=== PATIENT | female | born 1960 | race Caucasian/White ===

== ENCOUNTER 2024-10-20 19:06 | Emergency (ER) | payer MEDICARE, SELFPAY ==
[2024-10-20 19:11] VITALS: BP 176/104
[2024-10-20 19:29] VITALS: BP 181/90
[2024-10-20 20:00] VITALS: BP 165/97
[2024-10-20] MEDS: NSS 1000 IV (20:18)
[2024-10-20] MEDS: VALIUM 5 MG PO (20:19)
[2024-10-20 20:32] LABS: % Basophils 0.4 % (0-2); % Eosinophils 1.7 % (0-6); % Immature Granulocytes 0.3 % (0-0.5); % Lymphocytes 23.6 % (20.5-51.1); % Monocytes 8.5 % (1.7-9.3); % Neutrophils 65.5 % (42.2-75.2); Absolute Eosinophils 0.2 10^3/uL (0-0.7); Absolute Lymphocytes 2.2 10^3/uL (1.2-3.4); Absolute Monocytes 0.8 10^3/uL (0.1-0.6); Absolute Neutrophils 6.2 10^3/uL (1.4-6.5); Hematocrit 42.6 % (37.0-47.0); Hemoglobin 15.1 g/dL (12.0-16.0); Mean Corp Hgb Conc. 35.4 g/dL (33.0-37.0); Mean Corpuscular Hgb 32.4 pg (27.0-31.0); Mean Corpuscular Volume 91.4 fL (81.0-99.0); Mean Platelet Volume 9.3 fL (7.4-10.4); Nucleated Red Blood Cells % 0 %; Platelet Count 338 10^3/uL (130-400); Red Blood Cell Count 4.66 10^6/uL (4.20-5.40); White Blood Cell Count 9.4 10^3/uL (4.8-10.8)
[2024-10-20 20:48] LABS: Blood Urea Nitrogen 16 mg/dl (7-17); Calcium 10.2 mg/dl (8.4-10.2); Carbon Dioxide 23 mmol/L (22-30); Chloride 99 mmol/L (98-107); Glucose 104 mg/dl (70-99); Potassium 4.3 mmol/L (3.5-5.1); Sodium 136 mmol/L (135-145); eGFR > 60.00
[2024-10-20 20:59] LABS: Troponin I < 0.012 ng/ml
[2024-10-20 21:00] VITALS: BP 155/97
[2024-10-20] MEDS: NORVASC 5 MG PO (21:06)
[2024-10-20 21:47] VITALS: BP 157/97
--- NOTE | 2024-10-20 22:02 | ED.GENMED ---
History of Present Illness
General
Chief Complaint: Blood Pressure Problem
Source: patient and family
Exam Limitations: none
Time Seen by Provider: 10/20/24 19:27
Nursing documentation reviewed up to this point in time: agreed with
History of Present Illness
History of Present Illness:
Patient is a 64-year-old female with past medical history of bipolar disorder, schizoaffective disorder, depression, GERD, hypertension, who presents to the emergency department via EMS from home accompanied by her daughter for evaluation of
dizziness and elevated blood sugar. Patient reports that she has been dealing with dizziness for the past month or so. She reports that this has become gradually worse. Patient reports that is difficult to describe. Patient states that it got so
bad that she went to [facility] last week. While there, the patient had an extensive workup and was actually admitted for 4 days. Discharge instructions indicate that she had a CTA of the head and neck which demonstrated no abnormalities.
The patient also had an MRI of the brain which also showed no abnormalities. The patient was prescribed meclizine which she reports she has been taking without improvement in her symptoms. The patient was advised to follow-up with vestibular
therapy. Patient reports that she was not given any medication for her blood pressure. Patient reports that she was feeling extremely dizzy today so she checked her blood pressure at home. She reports that it was 220s over 120s and medics thought
it was best that she come to the emergency department to be evaluated. Patient reports that she continues to have dizziness. She reports that sometimes she has headaches. Patient denies vision changes such as blurred vision or double vision.
Patient denies chest pain, palpitations, shortness of breath, abdominal pain, nausea, vomiting, recent change in her bowel habits. Patient denies any recent lower extremity edema. Patient denies any recent illnesses such as fevers, chills, nasal
congestion, rhinorrhea, sore throat, cough. Patient notes that she did stop taking her psychiatric medications at the beginning of the year. Daughter questions whether this could be a component of the patient's symptoms today.
Past History
Past History
ED Past Medical History: GERD, HTN, Psychiatric (bipolar disorder, schizoaffective disorder, depression) and Other (hepatic steatosis)
ED Past Surgical History: Gynecological (Hyseterectomy)
Social History
Tobacco: Non-smoker
Alcohol: None
Drug: None
Review of Systems
Review of Systems
Allergies reviewed?: Yes
All Other Systems: ROS reviewed and negative except as documented in HPI and ROS
Constitutional: Reports no symptoms
EENT: Reports no symptoms
Respiratory: Reports no symptoms
Cardiac: Reports no symptoms
ABD/GI: Reports no symptoms
: Reports no symptoms
Musculoskeletal: Reports no symptoms
Skin: Reports no symptoms
Neurological: Reports dizzy
Endocrine: Reports no symptoms
Hematologic/Lymphatic: Reports no symptoms
Psychiatric: Reports depression and anxiety; Denies suicidal
Phy Exam
General Physical Exam
General Presentation: well appearing and no apparent distress
General Skin: warm and dry
General Habitus: normal
General Mental: alert
General Hydration: appears well hydrated
ENT Exam
ENT Exam: EOMI, pharynx normal, neck supple and normocephalic
Eye Exam
Eye Exam: PERRL, cornea clear and conjunctiva normal
Cardiovascular Exam
Cardiovascular Exam: regular rate/rhythm, no edema, no murmur and normal peripheral pulses
Pulmonary Exam
Pulmonary Exam: lungs clear, no respiratory distress, no rales, no crackles, no rhonchi, no stridor, no wheezing and no cough
Gastrointestinal Exam
Gastrointestinal Exam: normal bowel sounds, non tender, soft, no organomegaly, no pulsatile mass and non distended
Neurological Exam
Neurological Exam: alert, oriented x3, no motor deficits and speech normal
Musculoskeletal Exam
Musculoskeletal Exam: full ROM and no edema
Skin Exam
Skin Exam: normal color, warm/dry, no rash and no petechia
Psychiatric Exam
Psychiatric Exam: normal mood/affect
Course
Orders/Labs/Results
Orders:
Orders
10/20/24 19:52
Electrocardiogram (*1) Urgent
Reason for Study: Hypertension, Benign
EKG- Treatment ONCE
0.9% Sodium Chloride 1000 ml [Nss] 1,000 ml IV BOLUS
Diazepam [Valium] 5 mg PO NOW STA
10/20/24 20:09
Amlodipine [Norvasc] 10 mg .ROUTE .STK-MED ONE
10/20/24 20:20
Basic Metabolic Panel Urgent
Complete Blood Count/With Diff Urgent
Troponin I Urgent
10/20/24 21:05
Amlodipine [Norvasc] 5 mg PO DAILY
10/21/24 08:00
Amlodipine [Norvasc] 10 mg PO DAILY
Abnormal Lab Results
10/20/24
20:20
MCH 32.4 H pg
(27.0-31.0)
Absolute Monos (auto) 0.8 H 10^3/uL
(0.1-0.6)
Glucose 104 H mg/dl
(70-99)
10/20/24 20:20
10/20/24 20:20
Vital Signs
Initial and Last Documented VS:
Initial Vital Signs
Temp Pulse Resp BP Pulse Ox
98.6 F 92 20 176/104 96
10/20/24 19:11 10/20/24 19:11 10/20/24 19:11 10/20/24 19:11 10/20/24 19:11
Last Documented Vital Signs
Temp Pulse Resp BP Pulse Ox
98.6 F 88 25 157/97 94
10/20/24 19:11 10/20/24 21:33 10/20/24 21:33 10/20/24 21:47 10/20/24 21:33
*Critical Care Note
Total Time (30-74mins, 75-104mins- exclusive of procedures): Not Applicable
Update Note
Update Note:
64-year-old female presents for evaluation of dizziness and elevated blood pressure. Patient was just admitted to [facility] and had an extensive workup of her dizziness including CTA of the head and neck and also an MRI of the brain.
Patient was discharged on meclizine and referred to vestibular therapy. Patient was not discharged on antihypertensives. On exam, patient is intermittently tearful but is overall well-appearing and in no acute distress, she has normal
cardiopulmonary exam, she has a normal neurological exam without focal deficits. An EKG was performed and demonstrates normal sinus rhythm without evidence of acute ischemic changes. Labs were obtained and are non-actionable. Patient received IV
fluids, Valium, amlodipine. Patient's blood pressure improved. On reevaluation, patient states that she feels improved. She was able to ambulate to the restroom with a steady gait. I had an extensive conversation with the patient and her
daughter as they are questioning whether the patient's symptoms may be related to her recently stopping her psychiatric medications. Daughter reports that she has never stopped them for this period of time. Daughter and patient admits that the
patient has been perseverating more, has been more anxious more and has even been a bit paranoid at times. I encouraged the patient to follow-up with [facility] where her therapist is located and to discuss restarting her medications or possibly
starting different medications if she did not like the way that the medications made her feel. I will discharge the patient with a 30-day supply of amlodipine 5 mg to take daily. Patient encouraged to follow-up with her PCP for a blood pressure
recheck to ensure that her medications are optimized. I also advised them that the patient may still benefit from vestibular therapy and encouraged them to follow-up. Patient and her daughter were educated on strict return precautions, they
expressed understanding of the plan and agreed.
ED Attending Note
-
Portions of this chart may have been created with voice recognition software.� Occasional wrong word or��sound alike� substitutions may have occurred due to the inherent limitations of voice recognition software.
Discharge Plan
Departure
Patient Disposition: Home (Routine Discharge)
Date of Disposition: 10/20/24
Time of Disposition: 21:38
Patient with high blood pressure during this ER visit?: Yes
Condition: Good
Covid-19: Not Applicable
Discharge Problem:
Elevated blood pressure reading, Dizziness
Instructions: High Blood Pressure (DC), Dizziness
Prescriptions:
New
amlodipine 5 mg tablet
5 mg PO DAILY Qty: 30 0RF
Referrals:
Shaun Weinstein PA-C [Family Provider] - Follow up in 5-7 days (Call for follow up appointment)
Activity Restrictions/Additional Instructions:
You were seen in the emergency department for evaluation of elevated blood pressure and dizziness. While you were in the emergency department, you had an EKG and blood work. No dangerous abnormalities were found. Your blood pressure improved
while you were in the emergency department and we are starting you on blood pressure medication. Please make sure that you take it daily. We are also recommending that you follow-up closely with your therapist/mental health specialist at [facility]
[place] to restart your medications. Finally, please ensure that you schedule an appointment with your primary care provider for a blood pressure recheck within the next week. In addition, you may benefit from vestibular therapy as previously
recommended for your dizziness. Please return to the emergency department if you develop severe headache, worsening different dizziness, if you fall or hit your head, if you experience chest pain, shortness of breath, severe abdominal pain,
persistent vomiting, or for any other worsening or concerning symptoms.
Interventions
Interventions:
*Risk Screen - Suicide Last Done: 10/20/24 19:11
*General Assessment Last Done: 10/20/24 19:11
*Neglect/Abuse Screening Last Done: 10/20/24 19:11
ED- Fall Risk Assessment Last Done: 10/20/24 19:11
*ED COVID-19 Vaccine History Last Done: 10/20/24 19:11
ED- Cardiac Assessment Last Done: 10/20/24 20:15
ED- Neurological Assessment Last Done: 10/20/24 20:15
ED- Pulmonary Assessment Last Done: 10/20/24 20:15
ED Swallowing Screen Last Done: 10/20/24 20:15
Discharge Date and Time
Print Language: YORUBA
== END 2024-10-20 22:30 | disposition home or self-care (01) ==
LOC: EMR 19:06
PROVIDERS: Physician Assistant Medical; EMERGENCY PHYSICIAN Student in an Organized Health Care Education/Training Program; FAMILY PHYSICIAN Physician Assistant Medical
DX: R42 Dizziness and giddiness (principal); I10 Essential (primary) hypertension; K21.9 Gastro-esophageal reflux disease without esophagitis; F25.9 Schizoaffective disorder, unspecified; F31.9 Bipolar disorder, unspecified
CPT/HCPCS: 96360; 99284; 80048; 84484; 85025; 93005

== ENCOUNTER 2025-07-02 17:22 | Emergency (ER) | payer MEDICARE, MEDICAID, SELFPAY ==
[2025-07-02 17:24] VITALS: BP 142/96
[2025-07-02 17:51] LABS: Hematocrit 40.5 % (37.0-47.0); Hemoglobin 14.2 g/dL (12.0-16.0); Mean Corp Hgb Conc. 35.1 g/dL (33.0-37.0); Mean Corpuscular Volume 90.8 fL (81.0-99.0); Nucleated Red Blood Cells % 0 %; Platelet Count 321 10^3/uL (130-400); Red Cell Dist. Width 12.3 % (11.5-14.5)
[2025-07-02 18:18] LABS: ALT (SGPT) 43 U/L (0-35); AST (SGOT) 29 U/L (14-36); Albumin 4.6 g/dl (3.5-5.0); Alkaline Phosphatase 206 U/L (38-126); Blood Urea Nitrogen 10 mg/dl (7-17); Calcium 9.8 mg/dl (8.4-10.2); Carbon Dioxide 24 mmol/L (22-30); Glucose 114 mg/dl (70-99); Total Protein 7.7 g/dl (6.3-8.2); eGFR > 60.00
[2025-07-02 18:57] LABS: Chloride 106 mmol/L (98-107); Potassium 3.9 mmol/L (3.5-5.1); Sodium 140 mmol/L (135-145)
[2025-07-02 20:39] VITALS: BP 107/70
[2025-07-02 21:00] VITALS: BP 120/74
--- NOTE | 2025-07-02 21:42 | ED.GENMED ---
History of Present Illness
General
Chief Complaint: Numbness
Source: patient, spouse and family
Time Seen by Provider: 07/02/25 21:02
History of Present Illness
History of Present Illness:
65-year-old female with past medical history of seizures, hypertension, GERD, previous endometrial cancer presenting to the emergency department for evaluation of bilateral hand paresthesias and intermittent spasms to her upper arms but patient
overall stating that she just generally does not feel well. She notes that about 3 weeks ago she was discontinued off carbamazepine for which she had taken for almost 30 years due to side effects of hyponatremia and started on Keppra 500 mg twice
daily. Patient contacted her neurologist who wanted her to come to the ER for further evaluation this evening. She denies any headaches, focal weakness, diplopia, nausea or vomiting, fevers or any other concerns. Her usual seizure is described to
be tonic-clonic and often times will have a preceding aura. No other concerns presently
Past History
Past History
ED Past Medical History: GERD, HTN, Seizures, Psychiatric (bipolar disorder, schizoaffective disorder, depression) and Other (hepatic steatosis)
ED Past Surgical History: Gynecological (Hyseterectomy)
Social History
Tobacco: Non-smoker
Alcohol: None
Drug: None
Personal:
Living: with family
Review of Systems
Review of Systems
All Other Systems: ROS reviewed and negative except as documented in HPI and ROS
Phy Exam
Physical Exam
Physical Exam:
GENERAL: Alert , in no apparent distress
HEAD: Normocephalic atraumatic
EYE: conjunctiva clear, PERRL, EOMI, 3 mm bilateral
NECK: Supple, no significant adenopathy.
ENT: o/p clr, mmm.
CARDIAC: Regular rate and rhythm
LUNGS: Clear breath sounds bilaterally, no acute respiratory distress, no wheezes/rales/rhonchi
NEUROLOGICAL: Alert and oriented
SKIN: Warm and dry, skin intact.
MUSCULOSKELETAL: well perfused.
PSYCH: Normal and appropriate interaction.
Scores
Heart Failure Risk
Heart Failure Risk Score: Not Applicable
Heart Score for Chest Pain Patients
STEMI patient?: Not applicable
Withdrawal Assessment of Alcohol
Withdrawal Assessment Completed?: Not applicable
Course
Orders/Labs/Results
Orders:
Orders
07/02/25 17:34
Complete Blood Count/With Diff Urgent
Comprehensive Metabolic Panel Urgent
Creatine Phosphokinase Urgent
Comment: ADD ON
Magnesium Urgent
Comment: ADD ON
07/02/25 21:15
Add On- LAB Urgent
Tests Added?: cpk
07/02/25 21:16
Ceribell [Rapid Point of Care EEG (ED/ICU ONLY)] Q1
Indications for use:: Other
Comment: Numbness
07/02/25 21:31
CT Head W/o Iv Contrast Urgent
Comment:
Reason For Exam: paresthesias, hx seizures
Abnormal Lab Results
07/02/25
17:34
MCH 31.8 H pg
(27.0-31.0)
Absolute Monos (auto) 0.8 H 10^3/uL
(0.1-0.6)
Glucose 114 H mg/dl
(70-99)
ALT 43 H U/L
(0-35)
Alkaline Phosphatase 206 H U/L
(38-126)
07/02/25 17:34
07/02/25 17:34
Vital Signs
Initial and Last Documented VS:
Initial Vital Signs
Temp Pulse Resp BP Pulse Ox
98.0 F 104 18 142/96 95
07/02/25 17:24 07/02/25 17:24 07/02/25 17:24 07/02/25 17:24 07/02/25 17:24
Last Documented Vital Signs
Temp Pulse Resp BP Pulse Ox
98.0 F 85 23 121/65 94
07/02/25 17:24 07/02/25 22:00 07/02/25 22:00 07/02/25 22:00 07/02/25 21:47
MDM/Problems Addressed
Differential Diagnosis Includes:
Medication side effects
Medication Withdrawal
Focal Seizure
Electrolyte Imbalance
Less concern for CVA given bilateral nature of symptoms
MDM/Problems Addressed:
65-year-old female presenting to the ER at the request of her neurologist for bilateral paresthesias in the setting of recent medication changes. No focal findings on exam today. Labs have been initiated in triage are reassuring with normal
electrolytes. I did add on a magnesium and CPK level. CT of the head ordered. Will trial the Cerribell to ensure no active seizure activity
Chronic conditions affecting care: Neurological disorder
*Radiology
Radiology exam reviewed: radiology read reviewed
*Pulse Oximetry
SaO2: 94
Oxygen Mode of Delivery: Room air
Patient hypoxic: no
*Critical Care Note
Total Time (30-74mins, 75-104mins- exclusive of procedures): Not Applicable
Patient Management
Escalation/DeEscalation of care consider admission/obs:
Patient's workup reassuring. Imaging unremarkable, labs within normal range. At this time I do think it is reasonable for patient to be discharged home and continue workup as an outpatient. Aware of return precautions to the ER.
ED Attending Note
-
Portions of this chart may have been created with voice recognition software.� Occasional wrong word or��sound alike� substitutions may have occurred due to the inherent limitations of voice recognition software.
Discharge Plan
Departure
Patient Disposition: Home (Routine Discharge)
Date of Disposition: 07/02/25
Time of Disposition: 22:48
Patient with high blood pressure during this ER visit?: Yes
Discharge Problem:
Paresthesia
Instructions: Paresthesia (DC)
Prescriptions:
No Action
amlodipine 5 mg tablet
5 mg PO DAILY Qty: 30 0RF
Referrals:
Alma Delia Lomas MD [Non-Admitting Privileges, Psychiatry]
Shaun Weinstein PA-C [Family Provider]
Interventions
Interventions:
*Risk Screen - Suicide Last Done: 07/02/25 17:24
*General Assessment Last Done: 07/02/25 17:24
*Neglect/Abuse Screening Last Done: 07/02/25 20:12
*ED- Fall Risk Assessment Last Done: 07/02/25 20:12
*ED COVID-19 Vaccine History Last Done: 07/02/25 23:10
*ED Influenza Vaccine History Last Done: 07/02/25 20:12
*Nursing Disposition Last Done: 07/02/25 23:10
ED- Neurological Assessment Last Done: 07/02/25 22:50
Discharge Date and Time
Discharge Date/Time: 07/02/25 23:11
Print Language: [place]
[2025-07-02 21:45] LABS: Magnesium 2.1 mg/dl (1.6-2.3)
[2025-07-02 22:00] VITALS: BP 121/65
--- NOTE | 2025-07-03 09:16 | W.RAPID.EEG ---
Rapid EEG
-
Procedure Date: 07/02/25
Patient Status: Emergency Room
Results:
IMPRESSION:
No evidence of status epilepticus
Recording Information:
Diagnostic Recording Time: 00:31:04 (31 minutes)
Recording 1:
Start Time: Jul 02, 2025 21:38 PM End Time: Jul 02, 2025 22:10 PM
Recording Technique: This EEG was obtained using a 10 lead, 8 channel system positioned circumferentially without any parasagittal coverage (rapid EEG). Computer selected EEG is reviewed as well as background features and all clinically significant
events. Clarity algorithm utilized and implemented to provide analysis of underlying activity and seizure detection used to facilitate reading. ICD-10 Code PD94H78
Clinical History: LUKASZ ESTRADA is a 65 year old Other, Other: NUMBNESS patient undergoing EEG to screen for non-convulsive status epilepticus.
== END 2025-07-02 23:11 | disposition home or self-care (01) ==
LOC: EMR 17:22
PROVIDERS: EMERGENCY PHYSICIAN Emergency Medicine; FAMILY PHYSICIAN Physician Assistant Medical
DX: R20.2 Paresthesia of skin (principal); I10 Essential (primary) hypertension; Z85.42 Personal history of malignant neoplasm of other parts of uterus
CPT/HCPCS: 99284; 70450; 80053; 82550; 83735; 85025; 95816